=== PATIENT | female | born 1990 | race Two or more races ===

== ENCOUNTER 2019-09-11 00:16 | Emergency (ER) | payer OTHER ==
[~2019-09-11] VITALS: Ht 160 cm; Wt 59.9 kg
--- NOTE | 2019-09-11 00:20 | NUR ---
presented to the ER. per pt she had an episode of chest pain which was relieved [employer]. - SOB. -N/V. pt also w/ c/o right toe pain x 1 month due to ingrown toe nails. pt was placed on a monitor . VSS. will cont to monitor ,
[2019-09-11] MEDS ORDERED: CEPHALEXIN MONOHYDRATE 500 MG CAPSULE PO ONE ×2 (00:30→00:52)
[2019-09-11] MEDS ORDERED: SODIUM BICARBONATE 5 ML VIAL MC ONE (00:30)
[2019-09-11] MEDS ORDERED: SODIUM BICARBONATE 5 ML VIAL ONE (00:30)
[2019-09-11] MEDS ORDERED: LIDOCAINE 2% 20 ML MDV TP ONE (00:30)
[2019-09-11] MEDS ORDERED: LIDOCAINE 2% 20 ML MDV ONE (00:30)
--- NOTE | 2019-09-11 00:42 | NUR ---
dr. Eddy at the bed side to treat R toe ingrown toe nail
[2019-09-11 01:17] LABS: BASOPHILS # (AUTO) 0.1 /CMM (0.0-0.2); EOSINOPHILS % (AUTO) 2.6 % (0.0-6.0); HEMATOCRIT 42 % (33-45); HEMOGLOBIN 13.9 g/dL (11.5-14.8); LYMPHOCYTES # (AUTO) 2.5 /CMM (0.8-4.8); LYMPHOCYTES % (AUTO) 36.1 % (20.0-44.0); MEAN CORPUSCULAR HGB CONC 33 g/dl (31.0-36.0); MEAN CORPUSCULAR VOLUME 89 fL (82-100); MONOCYTES # (AUTO) 0.4 /CMM (0.1-1.30); MONOCYTES % (AUTO) 5.9 % (2.0-12.0); NEUTROPHILS # (AUTO) 3.7 /CMM (1.8-8.9); NEUTROPHILS % (AUTO) 54.4 % (43.0-81.0); PLATELET COUNT (AUTO) 454 /CMM (150-450); RED BLOOD CELL COUNT(AUTO) 4.72 MIL/uL (4.0-5.2); WHITE BLOOD COUNT (AUTO) 6.9 K/uL (4.3-11.0)
--- NOTE | 2019-09-11 01:40 | NUR ---
pt ambulatory in the hallways, reporting willing to leave and smoke. no c/o chest pain.
--- NOTE | 2019-09-11 01:45 | NUR ---
[facility]- [facility] [phone]
[2019-09-11] MEDS ORDERED: oxyCODONE/APAP (5/325 MG) 1 UDTAB TABLET ONE ×3 (01:51→03:46)
[2019-09-11 01:57] LABS: CALCIUM, SERUM 9.7 mg/dL (8.5-10.1); CARBON DIOXIDE 22 mmol/L (21-32); CHLORIDE 103 mmol/L (98-107); CREATININE 0.7 mg/dL (0.6-1.3); GLUCOSE 107 mg/dL (74-106); POTASSIUM 4.3 mmol/L (3.5-5.1); SODIUM SERUM 135 mmol/L (136-145); UREA NITROGEN, BLOOD 12 mg/dL (7-18)
[2019-09-11] MEDS ORDERED: oxyCODONE/APAP (5/325 MG) 1 UDTAB TABLET PO ONE ×3 (02:00→04:00)
[2019-09-11 02:08] LABS: ALANINE AMINOTRANSFERASE 63 U/L (12-78); ALBUMIN 4.3 g/dL (3.4-5.0); ALKALINE PHOSPHATASE 108 U/L (46-116); ASPARTATE AMINOTRANSFERASE 27 U/L (15-37); BILIRUBIN,DIRECT 0.1 mg/dL (0.0-0.2); BILIRUBIN,TOTAL 0.2 mg/dL (0.2-1.0); TOTAL PROTEIN, SERUM 7.9 g/dL (6.4-8.2)
--- NOTE | 2019-09-11 02:20 | NUR ---
Patient is resting comfortably in bed with eyes closed. Easily aroused. VSS. No c/o CP.will cont to monitor
[2019-09-11 02:21] LABS: B-TYPE NATRIURETIC PEPTIDE 8 PG/ML (0-125)
--- NOTE | 2019-09-11 04:35 | NUR ---
called Annel at [facility] for roll picker. pt is clear to be d/c'd per MD.
--- NOTE | 2019-09-11 04:57 | NUR ---
Rx and Written and verbal after care instructions given. Patient verbalizes understanding of instruction.
--- NOTE | 2019-09-11 05:34 | NUR ---
Patient discharged to home in stable condition and picked up by [facility]- help transportation.
[2019-09-11 05:35] VITALS: BP 112/64
== END 2019-09-11 05:36 | disposition home or self-care (01) ==
LOC: ER 00:18
DX: L60.0 Ingrowing nail (principal); R07.89 Other chest pain; F31.9 Bipolar disorder, unspecified; F17.200 Nicotine dependence, unspecified, uncomplicated; Z71.6 Tobacco abuse counseling
CPT/HCPCS: 11765; 36415; 71045; 80048; 80076; 83880; 84484 ×2; 84702; 85025; 93005; 99284; 99406; A6403; J3490 ×2